=== PATIENT | female | born 1960 | race African-American/Black ===

== ENCOUNTER 2019-11-03 11:27 | Outpatient (CLI) | payer OTHER, SELFPAY ==
[2019-11-03 12:27] LABS: Basophils Percent Auto 0.7 % (0.2-1.2); Eosinophils Absolute Auto 0.1 K/mm3 (0-0.3); Eosinophils Percent Auto 2.2 % (0-4.4); Hematocrit 39.3 % (37.0-47.0); Hemoglobin 13.1 g/dL (12.0-15.0); Immature Granulocyte Absolute 0.01 K/mm3 (0.00-0.031); Immature Granulocyte Percent A 0.2 % (0-0.5); Lymphocytes Absolute Auto 3.13 K/mm3 (0.9-3.2); Lymphocytes Percent Auto 56.1 % (18.3-44.2); Mean Corpuscular HGB Conc 33.3 g/dl (32-36); Mean Corpuscular Volume 87.1 fl (80-100); Mean Platelet Volume 9.6 fl (7.4-10.4); Monocytes Absolute Auto 0.3 K/mm3 (0.1-0.6); Monocytes Percent Auto 6.1 % (2.6-8.5); Neutrophils Absolute Auto 1.9 K/mm3 (1.3-6.7); Neutrophils Percent Auto 34.7 % (45.5-73.1); Platelet Count Result 277 k/mm3 (150-375); Red Blood Count 4.51 M/mm3 (4.2-5.4); White Blood Count 5.6 K/mm3 (4.5-10.0)
[2019-11-03 12:38] LABS: Blood Urea Nitrogen 14 mg/dL (7-17); Calcium 9.4 mg/dL (8.4-10.2); Carbon Dioxide 27 mmol/L (22-30); Chloride 101 mmol/L (98-107); Cholesterol 174 mg/dL (0-200); Estimated Glomerular Filt Rate > 60; Glucose 76 mg/dL (65-105); HDL Direct 57 mg/dL; Potassium 3.9 mmol/L (3.4-5.0); Sodium 138 mmol/L (137-145); Triglycerides 80 mg/dL (<150)
[2019-11-03 12:48] LABS: LDL Cholesterol Direct 84 mg/dL
[2019-11-03 12:59] LABS: Iron 88 ug/dL (37-170)
[2019-11-03 13:09] LABS: Percent Iron Saturation 27 % (20-50)
[2019-11-03 13:16] LABS: Vitamin D 25 Hydroxy 38.3 ng/mL
== END 2019-11-03 11:28 | disposition home or self-care (01) ==
PROVIDERS: PCP Internal Medicine; Visit Provider Internal Medicine
DX: D50.9 Iron deficiency anemia, unspecified (principal); I10 Essential (primary) hypertension; E55.9 Vitamin D deficiency, unspecified; E78.5 Hyperlipidemia, unspecified
CPT/HCPCS: 36415; 80048; 80061; 82306; 82728; 83540; 83550; 85025

== ENCOUNTER 2020-10-18 10:47 | Outpatient (CLI) | payer OTHER, SELFPAY ==
[2020-10-18 11:23] LABS: Hematocrit 38.2 % (37.0-47.0); Hemoglobin 12.9 g/dL (12.0-15.0); Mean Corpuscular HGB Conc 33.8 g/dl (32-36); Mean Corpuscular Hemoglobin 29.2 pg (26-34); Mean Corpuscular Volume 86.4 fl (80-100); Mean Platelet Volume 8.7 fl (7.4-10.4); Platelet Count Result 303 k/mm3 (150-375); Red Blood Count 4.42 M/mm3 (4.2-5.4); Red Cell Distribution Width 14.5 % (11.5-14.5); White Blood Count 5.2 K/mm3 (4.5-10.0)
[2020-10-18 11:30] LABS: Alanine Aminotransferase 18 U/L (4-35); Albumin Level 4.1 g/dL (3.5-5.1); Alkaline Phosphatase 57 U/L (38-126); Anion Gap 4 mmol/L (8-16); Aspartate Amino Transferase 23 U/L (14-36); Bilirubin,Total 0.6 mg/dL (0.2-1.3); Blood Urea Nitrogen 13 mg/dL (7-17); Calcium 9.3 mg/dL (8.4-10.2); Carbon Dioxide 31 mmol/L (22-30); Chloride 106 mmol/L (98-107); Cholesterol 165 mg/dL (0-200); Estimated Glomerular Filt Rate > 60; Glucose 83 mg/dL (65-105); HDL Direct 58 mg/dL; Potassium 4.7 mmol/L (3.4-5.0); Sodium 141 mmol/L (137-145); Triglycerides 59 mg/dL (<150)
[2020-10-18 11:41] LABS: LDL Cholesterol Direct 75 mg/dL
[2020-10-18 13:28] LABS: Iron 95 ug/dL (37-170)
[2020-10-18 13:39] LABS: Percent Iron Saturation 29 % (20-50)
[2020-10-18 14:24] LABS: Vitamin D 25 Hydroxy 40.8 ng/mL
== END 2020-10-18 10:48 | disposition home or self-care (01) ==
LOC: ANHLAB 10:49
PROVIDERS: PCP Internal Medicine; Visit Provider Nurse Practitioner
DX: E78.00 Pure hypercholesterolemia, unspecified (principal); D50.9 Iron deficiency anemia, unspecified; E55.9 Vitamin D deficiency, unspecified
CPT/HCPCS: 36415; 80053; 80061; 82306; 83540; 83550; 85027

== ENCOUNTER 2021-04-24 12:01 | Outpatient (CLI) | payer OTHER, SELFPAY ==
[2021-04-24 13:50] LABS: Hematocrit 44.6 % (37.0-47.0); Hemoglobin 14.6 g/dL (12.0-15.0)
[2021-04-24 14:02] LABS: Anion Gap 5 mmol/L (8-16); Blood Urea Nitrogen 13 mg/dL (7-17); Calcium 9.9 mg/dL (8.4-10.2); Carbon Dioxide 28 mmol/L (22-30); Chloride 106 mmol/L (98-107); Estimated Glomerular Filt Rate > 60; Glucose 87 mg/dL (65-110); Potassium 4.2 mmol/L (3.4-5.0); Sodium 139 mmol/L (137-145)
== END 2021-04-24 12:02 | disposition home or self-care (01) ==
PROVIDERS: PCP Internal Medicine; Visit Provider Nurse Practitioner
DX: D64.9 Anemia, unspecified (principal); I10 Essential (primary) hypertension; E55.9 Vitamin D deficiency, unspecified
CPT/HCPCS: 36415; 80048; 82306; 83735; 85014; 85018

== ENCOUNTER 2021-12-16 09:44 | Outpatient (CLI) | payer BC, SELFPAY ==
--- NOTE | ~2021-12-16 | MM_ITS ---
EXAMINATION: MM screening [facility] BI w dusty HISTORY: Screening TECHNIQUE: Craniocaudal and mediolateral oblique 3-D tomosynthesis images were obtained and synthetic 2-D images were generated. CAD analysis was submitted and interpreted. COMPARISON: Comparison to multiple prior studies sequentially, with oldest reviewed study dated 02/09. BREAST PARENCHYMAL COMPOSITION: There are scattered areas of fibroglandular density. FINDINGS: There is no evidence of suspicious mass, calcification, or architectural distortion to sugg est malignancy in either breast. There has been no suspicious interval change. IMPRESSION: 1. No mammographic evidence of malignancy. 2. Recommend routine screening mammography in one year. BI-RADS Category 1: Negative Reviewed, dictated and finalized at location A.
== END 2021-12-16 09:45 | disposition home or self-care (01) ==
PROVIDERS: PCP Internal Medicine; Visit Provider Internal Medicine
DX: Z12.31 Encounter for screening mammogram for malignant neoplasm of breast (principal)
CPT/HCPCS: 77063; 77067

== ENCOUNTER 2022-05-07 11:08 | Outpatient (CLI) | payer BC, SELFPAY ==
[2022-05-07 12:02] LABS: Hematocrit 40.5 % (37.0-47.0); Hemoglobin 13.6 g/dL (12.0-15.0)
[2022-05-07 12:25] LABS: Anion Gap 9 mmol/L (8-16); Blood Urea Nitrogen 15 mg/dL (7-17); Calcium 9.6 mg/dL (8.4-10.2); Carbon Dioxide 26 mmol/L (22-30); Chloride 101 mmol/L (98-107); Estimated Glomerular Filt Rate > 60; Glucose 94 mg/dL (65-110); Potassium 3.9 mmol/L (3.4-5.0); Sodium 136 mmol/L (137-145)
== END 2022-05-07 11:09 | disposition home or self-care (01) ==
LOC: ANHLAB 11:10
PROVIDERS: PCP Internal Medicine; Visit Provider Internal Medicine
DX: I10 Essential (primary) hypertension (principal); D64.9 Anemia, unspecified
CPT/HCPCS: 36415; 80048; 85014; 85018

== ENCOUNTER 2022-07-14 11:29 | Outpatient (CLI) | payer BC, SELFPAY ==
--- NOTE | ~2022-07-14 | MMUS_ITS ---
. EXAMINATION: MM diagnostic samia LT w dusty, US breast LT complete HISTORY: Left breast pain TECHNIQUE: Additional 3-D tomosynthesis images of the left breast were performed and synthetic 2-D im ages were generated. CAD analysis was submitted and interpreted. High resolution left complete breast ultrasound was performed. COMPARISON: Comparison to multiple prior studies sequentially, with oldest reviewed study dated 02/09. BREAST PARENCHYMAL COMPOSITION: Breast composed of scattered areas of fibroglandular density FINDINGS: MAMMOGRAPHIC FINDINGS: There are no suspicious masses, calcifications or architectural distortion in the left breast to sugg est malignancy. ULTRASOUND: Complete left breast US of all 4 quadrants of the breasts and retroareolar region was reviewed. Sayra l heterogeneous echotexture without focal solid or cystic mass. IMPRESSION: 1. No evidence for malignancy in the left breast. 2. Routine yearly screening mammogram and regular clinical breast examination are recommended. BI-RADS Category 1: Negative Reviewed, dictated and finalized at location A. IMPRESSION: 1. No evidence for malignancy in the left breast. 2. Routine yearly screening mammogram and regular clinical breast examination a re recommended. BI-RADS Category 1: Negative
== END 2022-07-14 11:30 | disposition home or self-care (01) ==
PROVIDERS: PCP Internal Medicine; Visit Provider Internal Medicine
DX: N63.0 Unspecified lump in unspecified breast (principal); N64.4 Mastodynia
CPT/HCPCS: 76641; 77061; 77065; G0279

== ENCOUNTER 2022-11-24 11:09 | Outpatient (CLI) | payer BC, SELFPAY ==
[2022-11-24 11:52] LABS: Alanine Aminotransferase 16 U/L (6-35); Albumin Level 4.5 g/dL (3.5-5.1); Alkaline Phosphatase 63 U/L (38-126); Anion Gap 2 mmol/L (8-16); Aspartate Amino Transferase 20 U/L (14-36); Bilirubin,Total 0.5 mg/dL (0.2-1.3); Blood Urea Nitrogen 15 mg/dL (7-17); Calcium 9.2 mg/dL (8.4-10.2); Carbon Dioxide 29 mmol/L (22-30); Chloride 104 mmol/L (98-107); Cholesterol 177 mg/dL (0-200); Estimated Glomerular Filt Rate > 60; Glucose 85 mg/dL (65-110); HDL Direct 73 mg/dL; Potassium 3.8 mmol/L (3.4-5.0); Sodium 135 mmol/L (137-145); Triglycerides 62 mg/dL (<150)
[2022-11-24 12:03] LABS: LDL Cholesterol Direct 72 mg/dL
[2022-11-24 12:11] LABS: Vitamin D 25 Hydroxy 31.2 ng/mL
== END 2022-11-24 11:10 | disposition home or self-care (01) ==
PROVIDERS: PCP Internal Medicine; Visit Provider Nurse Practitioner
DX: R53.83 Other fatigue (principal); I10 Essential (primary) hypertension; Z13.220 Encounter for screening for lipoid disorders; E55.9 Vitamin D deficiency, unspecified
CPT/HCPCS: 36415; 80053; 80061; 82306; 84443

== ENCOUNTER 2022-12-24 16:20 | Emergency (ER) | payer BC, SELFPAY ==
--- NOTE | ~2022-12-24 | CT_ITS ---
EXAMINATION: CT soft tissue neck w con DATE: 12/24/2022 20:19 INDICATION: Right jaw pain and swelling, recent root canal TECHNIQUE: Computed tomography (CT) of the neck was performed with 75 cc of Omnipaque 350 intravenous contrast. The dose-length product (DLP) was 419.43 mGy-cm. Automated exposure control and iterative reconstruction technique were employed. COMPARISON: None FINDINGS: There is plate and screw fixation of the right mandible. There are surgical clips in the ri ght anterior neck and submandibular region. No abnormal enhancement or abscess are identified. There is moderate cervical spondylosis. IMPRESSION: 1. Surgical changes without acute findings. Reviewed, dictated and finalized at location F.
[2022-12-24 16:21] VITALS: BP 145/87; PULSE 72; RESP 16; TEMP 37.2; O2SAT 100
[2022-12-24 19:48] LABS: Basophils Absolute Auto 0.1 K/mm3 (0.0-0.1); Eosinophils Absolute Auto 0.2 K/mm3 (0-0.3); Eosinophils Percent Auto 2.9 % (0-4.4); Hematocrit 38.3 % (37.0-47.0); Hemoglobin 12.7 g/dL (12.0-15.0); Immature Granulocyte Absolute 0.01 K/mm3 (0.00-0.031); Immature Granulocyte Percent A 0.2 % (0-0.5); Lymphocytes Absolute Auto 3.21 K/mm3 (0.9-3.2); Lymphocytes Percent Auto 54.9 % (18.3-44.2); Mean Corpuscular HGB Conc 33.2 g/dl (32-36); Mean Corpuscular Hemoglobin 28.9 pg (26-34); Mean Corpuscular Volume 87.2 fl (80-100); Mean Platelet Volume 9.8 fl (7.4-10.4); Monocytes Absolute Auto 0.5 K/mm3 (0.1-0.6); Monocytes Percent Auto 8.5 % (2.6-8.5); Neutrophils Absolute Auto 1.9 K/mm3 (1.3-6.7); Neutrophils Percent Auto 32.5 % (45.5-73.1); Platelet Count Result 356 k/mm3 (150-375); Red Blood Count 4.39 M/mm3 (4.2-5.4); White Blood Count 5.9 K/mm3 (4.5-10.0)
--- NOTE | 2022-12-24 19:56 | ED.DENTAL ---
HPI - Dental/Oral General Chief complaint: Dental/Oral Stated complaint: tooth pain Time Seen by Provider: 12/24/22 17:56 Source: patient Mode of arrival: ambulatory Limitations: no limitations History of Present Illness HPI Narrative: Patient is a 62-year-old female who presents to the ED with report of right-sided lower dental pain and jaw swelling. Patient reports she had a root canal and subsequent dental extraction of her right lower tooth, #29, last Wednesday. She developed pain and swelling to her lower jaw afterwards. She was seen in urgent care the next day and started on Augmentin. Patient patient denied improvement with the Augmentin. She was seen at another urgent care in [facility] over the weekend and had a CT scan of her neck performed which showed infection. She was given a dose of IV antibiotics and discharged with pain medicine. Patient followed with her dentist on Wednesday, who advised her to continue taking her antibiotics. No further recommendations. Patient presents today with continued pain and swelling to right lower jaw. Denies any fever, difficulty breathing or swallowing, nausea, vomiting. Teeth map: 1. dental extraction 2. missing teeth Related Data Home Medications Medication Instructions Recorded Confirmed dupilumab 300 mg/2 mL subcutaneous 300 mg subcut WEEKLY 05/13/22 11/24/22 pen injector ([facility]) acetaminophen 300 mg-codeine 30 mg tablet 12/24/22 12/24/22 tablet amoxicillin 875 mg-potassium tablet 12/24/22 clavulanate 125 mg tablet Allergies Allergy/AdvReac Type Severity Reaction Status Date / Time Sulfa (Sulfonamide Allergy Unknown Rash Verified 12/24/22 17:47 Antibiotics) Review of Systems Review of Systems: CONSTITUTIONAL: Denies fever, chills, or sweats. ENT: See HPI. CARDIOVASCULAR: See HPI. Denies chest pain. RESPIRATORY: Denies dyspnea. GASTROINTESTINAL: Denies nausea, vomiting. GENITOURINARY: Denies dysuria or hematuria. SKIN: See HPI. All systems reviewed & are unremarkable except as noted in HPI and below PMFSH Past Medical History Medical History COVID-19 Depression Former smoker Postmenopausal Pure hypercholesterolemia Screening for breast cancer Screening for colon cancer Family History Family History Mother Family history of Alzheimer's disease Patient's mother is , Onset Age: 82 Sibling Family history of diabetes mellitus in first degree relative Diabetes mellitus Father Family history of lung cancer Patient's father is Other Cerebrovascular accident Family history of cardiovascular disease Family history of malignant neoplasm Hypertension Social History Social History Smoking packs per day: 0.25 Smoking cigarettes per day: 5.0 Smoking status: Current every day smoker Tobacco type: cigarettes Second hand tobacco smoke exposure: Yes Alcohol intake: never Substance use: never Substance use type: does not use Exam Narrative: GENERAL: Well appearing, well-nourished, non-toxic, in no acute distress. HEAD: Normocephalic, atraumatic. ENT: Dental extraction right lower tooth, #29 with surrounding erythema/tenderness to palpation along inner and outer gumline. No focal fluctuance or obvious abscess. Scattered dental caries and decay. Swelling noted to R mandibular body, no significant induration. No stridor, trismus. No signs of dry socket. NECK: Supple. No adenopathy, no masses. No swelling of neck. RESPIRATORY: Airway patent, respirations nonlabored. Clear to auscultation bilaterally, no rales, rhonchi, wheezing. CARDIOVASCULAR: Regular rate and rhythm without murmurs, rubs, or gallops. Radial pulses 2+ and equal bilaterally. MUSCULOSKELETAL: Moves all extremities. Strength/ROM intact without robert
[2022-12-24 20:04] LABS: Alanine Aminotransferase 23 U/L (6-35); Albumin Level 4.5 g/dL (3.5-5.1); Alkaline Phosphatase 66 U/L (38-126); Anion Gap 8 mmol/L (8-16); Aspartate Amino Transferase 29 U/L (14-36); Bilirubin,Total 0.6 mg/dL (0.2-1.3); Blood Urea Nitrogen 12 mg/dL (7-17); Calcium 9.3 mg/dL (8.4-10.2); Carbon Dioxide 27 mmol/L (22-30); Chloride 104 mmol/L (98-107); Estimated CRCL calculation 71 ml/min; Estimated Glomerular Filt Rate > 60; Glucose 84 mg/dL (65-110); Potassium 4.5 mmol/L (3.4-5.0); Sodium 139 mmol/L (137-145)
[2022-12-24] MEDS: ONDANSETRON INJ 4 MG/2 ML VIAL IV PUSH (20:28)
[2022-12-24] MEDS: MORPHINE SULFATE (*CRX) 4 MG/ML INJ IV PUSH (20:28)
[2022-12-24 21:39] VITALS: BP 142/92; PULSE 61; RESP 16; O2SAT 100
== END 2022-12-24 22:23 | disposition home or self-care (01) ==
PROVIDERS: Emergency Provider Physician Assistant; PCP Internal Medicine
DX: K08.89 Other specified disorders of teeth and supporting structures (principal); R22.0 Localized swelling, mass and lump, head; Z98.818 Other dental procedure status; E78.00 Pure hypercholesterolemia, unspecified; Z86.16 Personal history of COVID-19; Z87.891 Personal history of nicotine dependence
CPT/HCPCS: 36415; 70491; 80053; 85025; 96374; 96375; 99284; J2270; J2405; Q9967

== ENCOUNTER 2023-06-08 14:43 | Outpatient (CLI) | payer BC, SELFPAY ==
[2023-06-08 15:27] LABS: Alanine Aminotransferase 19 U/L (6-35); Albumin Level 4.6 g/dL (3.5-5.1); Alkaline Phosphatase 53 U/L (38-126); Anion Gap 5 mmol/L (8-16); Aspartate Amino Transferase 24 U/L (14-36); Bilirubin,Total 0.6 mg/dL (0.2-1.3); Blood Urea Nitrogen 16 mg/dL (7-17); Calcium 9.3 mg/dL (8.4-10.2); Carbon Dioxide 29 mmol/L (22-30); Chloride 102 mmol/L (98-107); Cholesterol 214 mg/dL (0-200); Estimated Glomerular Filt Rate > 60; Glucose 86 mg/dL (65-110); HDL Direct 83 mg/dL; Potassium 3.8 mmol/L (3.4-5.0); Sodium 136 mmol/L (137-145); Triglycerides 82 mg/dL (<150)
[2023-06-08 15:38] LABS: LDL Cholesterol Direct 93 mg/dL
[2023-06-08 16:57] LABS: Vitamin D 25 Hydroxy 27.5 ng/mL
== END 2023-06-08 14:44 | disposition home or self-care (01) ==
LOC: ANHLAB 14:45
PROVIDERS: PCP Nurse Practitioner; Visit Provider Nurse Practitioner
DX: I10 Essential (primary) hypertension (principal); Z79.899 Other long term (current) drug therapy; E55.9 Vitamin D deficiency, unspecified
CPT/HCPCS: 36415; 80053; 80061; 82306

== ENCOUNTER 2023-12-17 10:34 | Outpatient (CLI) | payer OTHER, SELFPAY ==
[2023-12-17 11:30] LABS: Hematocrit 44.9 % (37.0-47.0); Hemoglobin 14.9 g/dL (12.0-15.0); Mean Corpuscular HGB Conc 33.2 g/dl (32-36); Mean Corpuscular Hemoglobin 27.5 pg (26-34); Mean Platelet Volume 9.1 fl (7.4-10.4); Platelet Count Result 332 k/mm3 (150-375); Red Blood Count 5.41 M/mm3 (4.2-5.4); Red Cell Distribution Width 14.5 % (11.5-14.5); White Blood Count 4.6 K/mm3 (4.5-10.0)
[2023-12-17 12:21] LABS: Alanine Aminotransferase 17 U/L (6-35); Albumin Level 4.8 g/dL (3.5-5.1); Alkaline Phosphatase 74 U/L (38-126); Anion Gap 8 mmol/L (4-12); Aspartate Amino Transferase 27 U/L (14-36); Bilirubin,Total 0.7 mg/dL (0.2-1.3); Blood Urea Nitrogen 29 mg/dL (7-17); Carbon Dioxide 24 mmol/L (22-30); Chloride 104 mmol/L (98-107); Cholesterol 219 mg/dL (0-200); Estimated Glomerular Filt Rate 55; Glucose 97 mg/dL (65-110); HDL Direct 93 mg/dL; Potassium 3.6 mmol/L (3.4-5.0); Sodium 136 mmol/L (137-145); Triglycerides 69 mg/dL (<150)
[2023-12-17 12:32] LABS: LDL Cholesterol Direct 87 mg/dL
[2023-12-17 13:03] LABS: Hemoglobin A1C 5.4 % (<5.7)
== END 2023-12-17 10:35 | disposition home or self-care (01) ==
LOC: ANHLAB 10:35
PROVIDERS: Visit Provider Nurse Practitioner
DX: D50.9 Iron deficiency anemia, unspecified (principal); I10 Essential (primary) hypertension; Z79.899 Other long term (current) drug therapy; Z83.3 Family history of diabetes mellitus; Z00.00 Encounter for general adult medical examination without abnormal findings
CPT/HCPCS: 36415; 80053; 80061; 83036; 84443; 85027

== ENCOUNTER 2024-03-07 15:12 | Outpatient (CLI) | payer OTHER, SELFPAY ==
--- NOTE | ~2024-03-07 | MM_ITS ---
EXAMINATION: MM screening [facility] BI w dusty HISTORY: Screening mammogram TECHNIQUE: Craniocaudal and mediolateral oblique 3-D tomosynthesis images were obtained and synthetic 2-D images were generated. CAD analysis was submitted and interpreted. COMPARISON: 07/14/2022, 12/16/2021, 05/11/2019 BREAST PARENCHYMAL COMPOSITION:Not Dense. There are scattered areas of fibroglandular density. FINDINGS: Questionable recurrent 1.5 x 0.6 cm ovoid mass in the slightly lower left subareolar breast on MLO view. No parenchymal abnormality the right breast. IMPRESSION: Questionable recurrent 1.5 x 0.6 cm mass at the slightly lower left subareolar breast on MLO view. S pot compression view, and possibly ultrasound, recommended for further evaluation. BI-RADS Category 0: Incomplete: Needs additional imaging evaluation. Reviewed, dictated and finalized at location . IMPRESSION: Questionable recurrent 1.5 x 0.6 cm mass at the slightly lower left subareolar breast on MLO view. Spot compression view, and possibly ultrasound, recommende d for further evaluation. BI-RADS Category 0: Incomplete: Needs additional imaging evaluation.
== END 2024-03-07 15:13 ==
LOC: MICIMG 15:13
PROVIDERS: PCP Nurse Practitioner; Visit Provider Nurse Practitioner
DX: Z12.31 Encounter for screening mammogram for malignant neoplasm of breast (principal); R92.8 Other abnormal and inconclusive findings on diagnostic imaging of breast
CPT/HCPCS: 77063; 77067

== ENCOUNTER 2024-04-07 08:27 | Outpatient (CLI) | payer OTHER, SELFPAY ==
--- NOTE | ~2024-04-07 | MMUS_ITS ---
EXAMINATION: MM diagnostic samia LT w dusty, US breast LT limited HISTORY: Follow-up left breast asymmetry TECHNIQUE: Additional 3-D tomosynthesis images of the left breast were performed and synthetic 2-D im ages were generated. CAD analysis was submitted and interpreted. High resolution Limited left breast ultrasound was performed. COMPARISON: Comparison to multiple prior studies sequentially, with oldest reviewed study dated 02/09. BREAST PARENCHYMAL COMPOSITION: Not dense: There are scattered areas of fibroglandular density. FINDINGS: MAMMOGRAPHIC FINDINGS: There are no suspicious masses, calcifications or architectural distortion in the left breast to sugg est malignancy. ULTRASOUND: Limited left breast ultrasound: At 1:00, 4 cm from the nipple there is an oval parallel oriented hypo echoic 7 mm mass without posterior features or internal vascularity, likely benign, possibly intramam deonna lymph node. No other masses are identified. IMPRESSION: 1. Probable benign 7 mm left breast mass at 1:00, 4 cm from the nipple. 2. Recommend 6 month follow-up Limited left breast ultrasound BI-RADS category 3, probably benign findings. Reviewed, dictated and finalized at location B. IMPRESSION: 1. Probable benign 7 mm left breast mass at 1:00, 4 cm from the nipple. 2. Recommend 6 month follow-up Limited left breast ultrasound BI-RADS category 3, probably benign findings.
== END 2024-04-07 08:28 ==
LOC: MICIMG 08:28
PROVIDERS: PCP Nurse Practitioner; Visit Provider Nurse Practitioner
DX: R92.8 Other abnormal and inconclusive findings on diagnostic imaging of breast (principal)
CPT/HCPCS: 76642; 77061; 77065; G0279

== ENCOUNTER 2024-06-22 12:12 | Outpatient (CLI) | payer OTHER, SELFPAY ==
[2024-06-22 12:47] LABS: Alanine Aminotransferase 17 U/L (6-35); Albumin Level 4.5 g/dL (3.5-5.1); Alkaline Phosphatase 64 U/L (38-126); Anion Gap 7 mmol/L (4-12); Aspartate Amino Transferase 25 U/L (14-36); Bilirubin,Total 0.5 mg/dL (0.2-1.3); Blood Urea Nitrogen 17 mg/dL (7-17); Calcium 9.5 mg/dL (8.4-10.2); Carbon Dioxide 29 mmol/L (22-30); Chloride 100 mmol/L (98-107); Estimated Glomerular Filt Rate > 60; Glucose 79 mg/dL (65-110); Potassium 3.9 mmol/L (3.4-5.0); Sodium 136 mmol/L (137-145)
[2024-06-22 13:22] LABS: Vitamin D 25 Hydroxy 25.5 ng/mL
== END 2024-06-22 12:13 | disposition home or self-care (01) ==
PROVIDERS: PCP Nurse Practitioner; Visit Provider Nurse Practitioner
DX: E55.9 Vitamin D deficiency, unspecified (principal); I10 Essential (primary) hypertension
CPT/HCPCS: 36415; 80053; 82306

== ENCOUNTER 2025-02-20 11:39 | Outpatient (CLI) | payer OTHER, SELFPAY ==
[2025-02-20 12:50] LABS: Alanine Aminotransferase 16 U/L (6-35); Albumin Level 4.5 g/dL (3.5-5.1); Alkaline Phosphatase 65 U/L (38-126); Anion Gap 6 mmol/L (4-12); Aspartate Amino Transferase 27 U/L (14-36); Bilirubin,Total 0.7 mg/dL (0.2-1.3); Blood Urea Nitrogen 12 mg/dL (7-17); Calcium 9.9 mg/dL (8.4-10.2); Carbon Dioxide 27 mmol/L (22-30); Chloride 106 mmol/L (98-107); Cholesterol 218 mg/dL (0-200); Estimated Glomerular Filt Rate 50; Glucose 85 mg/dL (65-110); HDL Direct 104 mg/dL; Sodium 139 mmol/L (137-145); Total Protein 7.8 g/dL (6.3-8.2); Triglycerides 61 mg/dL (<150)
[2025-02-20 12:53] LABS: Hemoglobin A1C 5.4 % (<5.7)
--- OUTSIDE RECORDS SUMMARY | 2025-02-20 12:54 | XMS_ITS | Clinical Summary ---
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 Gender Identity Not on file Sexual Orientation Not on file Plan of Treatment Health Maintenance Due Date Last Done Comments Hepatitis C Virus (HCV) Screening 1960 TdaP Immunization 1960 Pap Smear 11/20/1980 Cervical Cancer Screening (CCS) 11/20/1989 HPV/Cotest 11/20/1989 Colonoscopy 11/20/2004 Colorectal Cancer Screening 11/20/2004 Cologuard 11/20/2009 Immunochemical Fecal Occult Blood 11/20/2009 Mammogram 11/20/2009 Pneumococcal Immunization (5 0+ years) (1 of 1 - PCV) 11/20/2009 Zoster Immunization (1 of 2) 11/20/2009 Influenza Immunization (#1) 2024 SARS-COV-2 Immunization (2023-25 season) 2024 Respiratory Syncytial Virus (RSV) Immunization (Adult) (1 - 1-dose 75+ series) 11/20/2034 Hepatitis B Immunization Aged Out No longer eligible based on patient's age to complete this topic Meningococcal Immunization (ACWY) Aged Out No longer eligible based on patient's age to complete this topic Pneumococcal Immunization Combined Aged Out No longer eligible based on patient's age to complete this topic Rotavirus Immunization Aged Out No lo nger eligible based on patient's age to complete this topic
--- OUTSIDE RECORDS SUMMARY | 2025-02-20 12:55 | XMS_ITS | Clinical Summary ---
Author Organization [facility] Address [facility] [place] [address] Care Team Providers Care Multifocal Lens Assembler Name Role Phone No, Physician Primary Care Provider [phone] Allergies Active Allergy Reactions Criticality Noted Date Comments Oxycodone Itching,Other (See comments) Reaction: Itching, Burning Sensation, Sulfa (Sulfonamide Antibiotics) Itching,Rash Reaction: Itching, Rash, Medications amLODIPine (Norvasc) 5 mg tablet Take 5 mg by mouth daily Active losartan (COZAAR) 25 mg tablet Take 1 tablet by mouth daily Active Active Problems Problem Noted Date Diagnosed Date Tobacco use 05/15/2016 Jaw pain 09/18/2015 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 Social History Tobacco Use Types Packs/Day Years Used Date Smoking Tobacco: Never Assessed Comments No Sex and Gender Information Value Date Recorded Sex Assigned at Not on file 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 Sex Female 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 Gender Identity Not on file Sexual Orientation Not on file Obstetrics History Last Filed Vital Signs Vital Sign Reading Time Taken Comments Blood Pressure 153/99 04/25/2020 2:47 PM CDT Pulse 86 04/25/2020 2:47 PM CDT Temperature 36.3 C (97.4 F) 08/29/2019 8:06 PM FREQUENCY CHECKER Respiratory Rate 22 08/30/2019 1:05 AM FREQUENCY CHECKER Oxygen Saturation 100% 08/30/2019 1:05 AM FREQUENCY CHECKER Inhaled Oxygen Concentration - - Weight 61.7 kg (136 lb) 04/25/2020 2:47 PM CDT Height 170.2 cm (5' 7) 04/25/2020 2:47 PM CDT Body Mass Index 21.3 04/25/2020 2:47 PM CDT Plan of Treatment Health Maintenance Due Date Last Done Comments Breast Cancer Screening-Mammogram 1960 Cervical Cancer Screening 1959 Colon Cancer Screening-Colonoscopy 1959 Depression Screening 1959 Fall Risk Assessment 1959 DTaP/Tdap/Td Vaccine (1 - Tdap) 11/20/1970 Hepatitis B Screening 11/20/1977 Pneumococcal vaccine 65+ (1 of 1 - PCV) 11/20/2009 Zoster Vaccine (1 of 2) 11/20/2009 Osteoporosis Screening-Bone Density Scan 06/28/2016 06/28/2014 Covid-19 Vaccine ( season) 05/14/202407/2021, 01/03/2021 Well Visit 65+ 11/20/2024 Influenza Vaccine (Season Ended) 2025 Hepatitis C Screening Completed 06/12/2014 Procedures Procedure Name Priority Date/Time Associated Diagnosis Comments NM BONE SPECT/CT SUPPLEMENT 4 Routine 06/28/2014 3:43 PM CDT SERUM HEPATITIS C AB Routine 06/12/2014 7:14 AM CDT from Last 3 Months or Most Recently Relevant to Health Maintenance Results * NM Bone Spect CT Supplement 4 (06/28/2014 3:43 PM CDT) Anatomical Region Laterality Modality N/A Nuclear Medicine 06/28/2014 3:43 PM CDT Narrative 06/28/2014 4:46 PM CDT KAR KIM M.D. CARLIE QUIROZ M.D. FINAL REPORT The radiology attending physician has personally reviewed this study, and has reviewed and/or edited this written report and agrees with it. ACC# Date Time Exam [id number] Jun 28, 2014 15:43:00 [id number] [facility] IMG. [id number] Jun 28, 2014 15:43:00 Bone: SPECT/CT Supple [id number] EXAMINATION: BONE SCINTIGRAPHY (LIMITED/SPECT) DATE OF STUDY: 06/28/2014 RADIOPHARMACEUTICAL: 19.63 mCi Tc-99m MDP i.v. 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 The patient had placement of a new osteocutaneous fibular free flap on 06/12/2014. Evaluate for viability. FINDINGS: A limited examination of the face was performed consisting of delayed planar images, as well as tomographic (SPECT) images of the face. Comparison is made with the CT examination of the neck preformed on 06/27/2014. No other relevant imaging studies are available for comparison with the scintigrams. There is increased radiotracer uptake at the site of attachment between the osteocutaneous fibular free flap and the [place] mandibular bone stock, consistent with viability of the graft. Noncontrast CT images demonstrate postoperative changes of fibular bone graft reconstruction involving the right mandibular body and ramus. Soft tissue defect with fat stranding and soft tissue swelling is again noted at the site of the reconstruction IMPRESSION:There is radiotracer uptake at the sites of attachment between the osteocutaneous fibular free flap and the [place] mandibular bone. The center portion of the graft has activity also, though somewhat less. Overall, the pattern suggests viability of the bone graft. Requested By: ISSAC CUEVAS M.D. Dictated By: CARLIE QUIROZ M.D. on Jun 28 2014 4:10P This document has been electronically signed by: KAR KIM M.D. on Jun 28 2014 4:46P [id number] Procedure Note Provider, MD Karla - 01/16/2017 Cari JAUREGUI M.D. FINAL REPORT The radiology attending physician has personally reviewed this study, and has reviewed and/or edited this written report and agrees with it. ACC# Date Time Exam [id number] Jun 28, 2014 15:43:00 [id number] [facility] IMG. [id number] Jun 28, 2014 15:43:00 Bone: SPECT/CT Supple [id number] EXAMINATION: BONE SCINTIGRAPHY (LIMITED/SPECT) DATE OF STUDY: 06/28/2014 RADIOPHARMACEUTICAL: 19.63 mCi Tc-99m MDP i.v. 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 The patient had placement of a new osteocutaneous fibular free flap on 06/12/2014. Evaluate for viability. FINDINGS: A limited examination of the face was performed consisting of delayed planar images, as well as tomographic (SPECT) images of the face. Comparison is made with the CT examination of the neck preformed on 06/27/2014. No other relevant imaging studies are available for comparison with the scintigrams. There is increased radiotracer uptake at the site of attachment between the osteocutaneous fibular free flap and the [place] mandibular bone stock, consistent with viability of the graft. Noncontrast CT images demonstrate postoperative changes of fibular bone graft reconstruction involving the right mandibular body and ramus. Soft tissue defect with fat stranding and soft tissue swelling is again noted at the site of the reconstruction IMPRESSION:There is radiotracer uptake at the sites of attachment between the osteocutaneous fibular free flap and the [place] mandibular bone. The center portion of the graft has activity also, though somewhat less. Overall, the pattern suggests viability of the bone graft. Requested By: ISSAC CUEVAS M.D. Dictated By: CARLIE QUIROZ M.D. on Jun 28 2014 4:10P This document has been electronically signed by: KAR KIM M.D. on Jun 28 2014 4:46P [id number] Historical Provider MD DURAND NM PROCEDURES Final R esult * Serum Hepatitis C ab (06/12/2014 7:14 AM CDT) HCV ab Negative NEG HISTORICAL RESULTS Serum 06/12/2014 7:14 AM CDT Narrative HISTORICAL RESULTS - 06/13/2014 5:37 AM CDT Interpretive Data If confirmation is required, call Laboratory Customer Service to request sample to be sent to [facility] for Hepatitis C Virus (HCV) RNA Detection and Quantitation by Real-Time Reverse Mushroom Sorter Grader-PCR (RT-PCR). Current interpretive data was last revised on 2011 us Dusty Giordano MD LAB BLOOD ORDERABLES Final Result HISTORICAL RESULTS from Last 3 Months or Most Recently Relevant to Health Maintenance Insurance OPEN ACCESS CIGMAT OPEN ACCESS Care Teams Multifocal Lens Assembler Relationship Specialty Start Date End Date No, Physician PCP - General 04/25/20
--- OUTSIDE RECORDS SUMMARY | 2025-02-20 12:55 | XMS_ITS | Referral Summary ---
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 GLUER Gender Identity Not on file Sexual Orientation Not on file Last Filed Vital Signs Vital Sign Reading Time Taken Comments Blood Pressure 153/99 04/25/2020 2:47 PM CDT Pulse 86 04/25/2020 2:47 PM CDT Temperature 36.3 C (97.4 F) 08/29/2019 8:06 PM ELECTRONIC GLUER Respiratory Rate 22 08/30/2019 1:05 AM ELECTRONIC GLUER Oxygen Saturation 100% 08/30/2019 1:05 AM ELECTRONIC GLUER Inhaled Oxygen Concentration - - Weight 61.7 kg (136 lb) 04/25/2020 2:47 PM CDT Height 170.2 cm (5' 7) 04/25/2020 2:47 PM CDT Body Mass Index 21.3 04/25/2020 2:47 PM CDT Plan of Treatment Not on file Procedures Procedure Name Priority Date/Time Associated Diagnosis [...] agrees with it. ACC# Date Time Exam [id number] Jun 28, 2014 15:43:00 [id number] [facility] IMG. [id number] Jun 28, 2014 15:43:00 Bone: SPECT/CT Supple [id number] EXAMINATION: BONE SCINTIGRAPHY (LIMITED/SPECT) DATE OF STUDY: [...] the osteocutaneous fibular free flap and the [place] mandibular bone stock, consistent with viability of the graft. Noncontrast CT images demonstrate postoperative changes of fibular bone graft reconstruction involving the right mandibular body and ramus. Soft tissue defect with fat stranding and soft tissue swelling is again noted at the site of the reconstruction IMPRESSION:There is radiotracer uptake at the sites of attachment between the osteocutaneous fibular free flap and the [place] mandibular bone. The center portion of the graft has activity also, though somewhat less. Overall, the pattern suggests viability of the bone graft. Requested By: ISSAC CUEVAS M.D. Dictated By: CARLIE QUIROZ M.D. on Jun 28 2014 4:10P This document has been electronically signed by: KAR KIM M.D. on Jun 28 2014 4:46P [id number] Procedure Note Provider, MD Karla - 01/16/2017 KAR KIM M.D. CARLIE QUIROZ M.D. FINAL REPORT The radiology attending physician has personally reviewed this study, and has reviewed and/or edited this written report and agrees with it. ACC# Date Time Exam [id number] Jun 28, 2014 15:43:00 [id number] [facility] IMG. [id number] Jun 28, 2014 15:43:00 Bone: SPECT/CT Supple [id number] EXAMINATION: BONE SCINTIGRAPHY (LIMITED/SPECT) DATE OF STUDY: [...] the osteocutaneous fibular free flap and the [place] mandibular bone stock, consistent with viability of the graft. Noncontrast CT images demonstrate postoperative changes of fibular bone graft reconstruction involving the right mandibular body and ramus. Soft tissue defect with fat stranding and soft tissue swelling is again noted at the site of the reconstruction IMPRESSION:There is radiotracer uptake at the sites of attachment between the osteocutaneous fibular free flap and the [place] mandibular bone. The center portion of the graft has activity also, though somewhat less. Overall, the pattern suggests viability of the bone graft. Requested By: ISSAC CUEVAS M.D. Dictated By: CARLIE QUIROZ M.D. on Jun 28 2014 4:10P This document has been electronically signed by: KAR KIM M.D. on Jun 28 2014 4:46P [id number] us Historical Provider MD DURAND NM PROCEDURES Final R esult * Serum Hepatitis C ab (06/12/2014 7:14 AM CDT) HCV ab Negative NEG HISTORICAL RESULTS Serum 06/12/2014 7:14 AM CDT Narrative HISTORICAL RESULTS - 06/13/2014 5:37 AM CDT Interpretive Data If confirmation is required, call Laboratory Customer Service to request sample to be sent to [facility] for Hepatitis C Virus (HCV) RNA Detection and Quantitation by Real-Time Reverse Primer Charger-PCR (RT-PCR). Current interpretive data was last revised on 2011 Dusty Giordano MD LAB BLOOD ORDERABLES Final Result HISTORICAL RESULTS from Last 3 Months or Most Recently Relevant to Health Maintenance Insurance [employer] OPEN ACCESS [place] OPEN ACCESS Care Teams Director Of Career Resources Relationship Specialty Start Date End Date No, Physician PCP - General 04/25/20
[2025-02-20 13:01] LABS: LDL Cholesterol Direct 78 mg/dL
[2025-02-20 13:17] LABS: Vitamin D 25 Hydroxy 38.3 ng/mL
== END 2025-02-20 11:40 | disposition home or self-care (01) ==
LOC: ANHLAB 11:40
PROVIDERS: PCP Nurse Practitioner; Visit Provider Nurse Practitioner
DX: E78.5 Hyperlipidemia, unspecified (principal); E55.9 Vitamin D deficiency, unspecified; Z83.3 Family history of diabetes mellitus
CPT/HCPCS: 36415; 80053; 80061; 82306; 83036

== ENCOUNTER 2025-04-20 09:00 | Outpatient (CLI) | payer OTHER, SELFPAY ==
--- NOTE | ~2025-04-20 | MMUS_ITS ---
EXAMINATION: MM diagnostic samia BI w dusty, US breast LT limited INDICATION: 64-year old female; coronal bilateral mammography with delayed short-term follow-up on pr obably benign left breast mass initially evaluated on 04/07/2024. COMPARISON: 04/07/2024 through 02/09/2017 TECHNIQUE: Digital breast tomosynthesis True lateral and CC and MLO views of BILATERAL breasts and sp ot compression left breast were obtained with computer-aided detection to assist in interpretation of the study. FINDINGS: There are scattered areas of fibroglandular density. There are no suspicious masses, calcifications, architectural distortion or other abnormality in eit her breast. Biopsy clip in both breast. LEFT BREAST ULTRASOUND FINDINGS: 0.7 cm circumscribed hypoechoic mass at 1:00, 4 cm fn reidentified is Unchanged. IMPRESSION: 1. Probably benign left breast mass at 1:00 location with no mammographic correlate as demonstrated 1 4 months stability since the initial evaluation. 2. No mammographic evidence of malignancy in either breast. RECOMMENDATION: Follow-up diagnostic bilateral mammography and left breast ultrasound in 12 months. BI-RADS 3, PROBABLY BENIGN Reviewed, dictated and finalized at location B. IMPRESSION: 1. Probably benign left breast mass at 1:00 location with no mammographic corre late as demonstrated 14 months stability since the initial evaluation. 2. No mammographic evidence of malignancy in either breast. RECOMMENDATION: Follow-up diagnostic bilateral mammography and left breast ultrasound in 12 mon ths. BI-RADS 3, PROBABLY BENIGN
--- OUTSIDE RECORDS SUMMARY | 2025-04-20 09:08 | XMS_ITS | Clinical Summary ---
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 Gender Identity Not on file Sexual Orientation Not on file Plan of Treatment Health Maintenance Due Date Last Done Comments Hepatitis C Virus (HCV) Screening 1960 TdaP Immunization 1959 Pap Smear 11/20/1980 Cervical Cancer Screening (CCS) 11/20/1989 HPV/Cotest 11/20/1989 Cologuard 11/20/2004 Colonoscopy 11/20/2004 Colorectal Cancer Screening 11/20/2004 Immunochemical Fecal Occult Blood 11/20/2004 Pneumococcal Immunization (5 0+ years) (1 of 1 - PCV) 11/20/2009 Zoster Immunization (1 of 2) 11/20/2009 SARS-COV-2 Immunization ( - 2023- season) 2024 Influenza Immunization (#1) 2025 Respiratory Syncytial Virus (RSV) Immunization (Adult) (1 - 1-dose 75+ series) 11/20/2034 Hepatitis B Immunization Aged Out No longer eligible based on patient's age to complete this topic Human Papillomavirus (HPV) Immunization Aged Out No longer eligible b ased on patient's age to complete this topic Meningococcal Immunization (ACWY) Aged Out No longer eligible based on patient's age to complete this topic Rotavirus Immunization Aged Out No lo nger eligible based on patient's age to complete this topic
--- OUTSIDE RECORDS SUMMARY | 2025-04-20 09:08 | XMS_ITS | Clinical Summary ---
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 Gender Identity Not on file Sexual Orientation Not on file Obstetrics History Last Filed Vital Signs Vital Sign Reading Time Taken Comments Blood Pressure 153/99 04/25/2020 2:47 PM CDT Pulse 86 04/25/2020 2:47 PM CDT Temperature 36.3 C (97.4 F) 08/29/2019 8:06 PM PLASMA TABLE OPERATOR Respiratory Rate 22 08/30/2019 1:05 AM PLASMA TABLE OPERATOR Oxygen Saturation 100% 08/30/2019 1:05 AM PLASMA TABLE OPERATOR Inhaled Oxygen Concentration - - Weight 61.7 [...] 01/03/2021 Well Visit 65+ 11/20/2024 Influenza Vaccine (#1) 2025 Hepatitis C Screening Completed 06/12/2014 Procedures [...] agrees with it. ACC# Date Time Exam [id number] Jun 28, 2014 15:43:00 [id number] [place] BONE IMG. [id number] Jun 28, 2014 15:43:00 Bone: SPECT/CT Supple [id number] EXAMINATION: BONE SCINTIGRAPHY (LIMITED/SPECT) DATE OF STUDY: [...] the osteocutaneous fibular free flap and the comanche mandibular bone stock, consistent with viability of the graft. Noncontrast CT images demonstrate postoperative changes of fibular bone graft reconstruction involving the right mandibular body and ramus. Soft tissue defect with fat stranding and soft tissue swelling is again noted at the site of the reconstruction IMPRESSION:There is radiotracer uptake at the sites of attachment between the osteocutaneous fibular free flap and the comanche mandibular bone. The center portion of the graft has activity also, though somewhat less. Overall, the pattern suggests viability of the bone graft. Requested By: ISSAC CUEVAS M.D. Dictated By: CARLIE QUIROZ M.D. on Jun 28 2014 4:10P This document has been electronically signed by: KAR KIM M.D. on Jun 28 2014 4:46P [id number] Procedure Note Provider, MD Karla - 01/16/2017 Cari JAUREGUI M.D. FINAL REPORT The radiology attending physician has personally reviewed this study, and has reviewed and/or edited this written report and agrees with it. ACC# Date Time Exam [id number] Jun 28, 2014 15:43:00 [id number] [place] BONE IMG. [id number] Jun 28, 2014 15:43:00 Bone: SPECT/CT Supple [id number] EXAMINATION: BONE SCINTIGRAPHY (LIMITED/SPECT) DATE OF STUDY: [...] the osteocutaneous fibular free flap and the comanche mandibular bone stock, consistent with viability of the graft. Noncontrast CT images demonstrate postoperative changes of fibular bone graft reconstruction involving the right mandibular body and ramus. Soft tissue defect with fat stranding and soft tissue swelling is again noted at the site of the reconstruction IMPRESSION:There is radiotracer uptake at the sites of attachment between the osteocutaneous fibular free flap and the comanche mandibular bone. The center portion of the graft has activity also, though somewhat less. Overall, the pattern suggests viability of the bone graft. Requested By: ISSAC CUEVAS M.D. Dictated By: CARLIE QUIROZ M.D. on Jun 28 2014 4:10P This document has been electronically signed by: KAR KIM M.D. on Jun 28 2014 4:46P [id number] Historical Provider MD DURAND NM PROCEDURES Final R esult * Serum Hepatitis C ab (06/12/2014 7:14 AM CDT) HCV ab Negative NEG HISTORICAL RESULTS Serum 06/12/2014 7:14 AM CDT Narrative HISTORICAL RESULTS - 06/13/2014 5:37 AM CDT Interpretive Data If confirmation is required, call Laboratory Customer Service to request sample to be sent to [facility] for Hepatitis C Virus (HCV) RNA Detection and Quantitation by Real-Time Reverse [employer] Room Service Supervisor-PCR (RT-PCR). Current interpretive data was last revised on 2011 us Dusty Giordano MD LAB BLOOD ORDERABLES Final Result HISTORICAL RESULTS from Last 3 Months or Most Recently Relevant to Health Maintenance Insurance OPEN ACCESS [employer]IG[employer] OPEN ACCESS Care Teams Global Supply Chain Director Relationship Specialty Start Date End Date No, Physician PCP - General 04/25/20
== END 2025-04-20 09:01 | disposition home or self-care (01) ==
PROVIDERS: PCP Nurse Practitioner; Visit Provider Nurse Practitioner
DX: R92.8 Other abnormal and inconclusive findings on diagnostic imaging of breast (principal); N63.20 Unspecified lump in the left breast, unspecified quadrant
CPT/HCPCS: 76642; 77062; 77066; G0279

== ENCOUNTER 2025-07-26 12:26 | Outpatient (CLI) | payer OTHER, SELFPAY ==
--- OUTSIDE RECORDS SUMMARY | 2025-07-26 13:03 | XMS_ITS | Clinical Summary ---
Author Organization [facility] Address [facility] [place] [address] Care Team Providers Care Hard Candy Spinner Name Role Phone No, Physician Primary Care Provider [phone] Allergies Active Allergy Reactions Criticality Noted Date [...] on file Legal Sex Female 6:10 AM PICK OUT HAND Gender Identity Not on file Sexual Orientation Not on file Last Filed Vital Signs Vital Sign Reading Time Taken Comments Blood Pressure 153/99 04/25/2020 2:47 PM CDT Pulse 86 04/25/2020 2:47 PM CDT Temperature 36.3 C (97.4 F) 08/29/2019 8:06 PM PICK OUT HAND Respiratory Rate 22 08/30/2019 1:05 AM PICK OUT HAND Oxygen Saturation 100% 08/30/2019 1:05 AM PICK OUT HAND Inhaled Oxygen Concentration - - Weight 61.7 kg (136 lb) 04/25/2020 2:47 PM CDT Height 170.2 cm (5' 7) 04/25/2020 2:47 PM CDT Body Mass Index 21.3 04/25/2020 2:47 PM CDT Plan of Treatment Not on file Insurance [employer] OPEN ACCESS [employer] OPEN ACCESS Care Teams Hard Candy Spinner Relationship Specialty Start Date End Date No, Physician PCP - General 04/25/20
--- OUTSIDE RECORDS SUMMARY | 2025-07-26 13:03 | XMS_ITS | Clinical Summary ---
Author Organization [facility] Care Team Providers Care Appeals Examiner Name Role Phone Unavailable Primary Care Provider Unavailabl e Social History Tobacco Use Types Packs/Day Years Used Date Smoking Tobacco: Never Assessed Comments Unknown Sex and Gender Information Value Date Recorded Sex Assigned at Not on file Legal Sex Female 10:50 AM WIRE PULLER Gender Identity Not on file Sexual Orientation [...] (1 of 2) 11/20/2009 Influenza Immunization (#1) 2025 SARS-COV-2 Immunization ( season) 2025 Respiratory Syncytial Virus (RSV) Immunization (Adult) [...]
[2025-07-26 14:07] LABS: Alanine Aminotransferase 18 U/L (6-35); Albumin Level 4.5 g/dL (3.5-5.1); Alkaline Phosphatase 72 U/L (38-126); Anion Gap 9 mmol/L (4-12); Aspartate Amino Transferase 26 U/L (14-36); Bilirubin,Total 0.7 mg/dL (0.2-1.3); Blood Urea Nitrogen 17 mg/dL (7-17); Calcium 9.5 mg/dL (8.4-10.2); Carbon Dioxide 24 mmol/L (22-30); Chloride 107 mmol/L (98-107); Estimated Glomerular Filt Rate 56; Glucose 82 mg/dL (65-110); Potassium 3.9 mmol/L (3.4-5.0); Sodium 140 mmol/L (137-145); Total Protein 7.9 g/dL (6.3-8.2)
== END 2025-07-26 12:27 | disposition home or self-care (01) ==
PROVIDERS: PCP Nurse Practitioner; Visit Provider Nurse Practitioner
DX: I10 Essential (primary) hypertension (principal)
CPT/HCPCS: 36415; 80053